=== PATIENT | female | born 1995 | race Caucasian/White ===

== ENCOUNTER 2016-04-14 12:54 | Emergency (ER) | payer MEDICAID ==
[~2016-04-14 12:54] MED LIST: PREN1TAB18
--- NOTE | 2016-04-14 13:53 | PD ---
HPI Travel History International Travel<30 Days: No Contact w/Intl Traveler<30Days: No Known Affected Area: No History of Present Illness HPI This patient is a 21-year-old 1 para 0 EDC is May 15, 2016 present at 35 weeks and 4 days she presents with chief complaint of headache she states she awoke and had a severe headache she took 2 Tylenol and it has improved some no blurred vision no nausea no vomiting no ruptured membranes no vaginal bleeding the baby is active care with Dr. calvillo of the denies any complications History Past Medical History Narrative Medical No known drug allergies no major medical problems Obstetric History Obstetric History First Past Surgical History Surgical History: No Previous Surgery Family History Family History: Negative Social History Alcohol Use: No Tobacco Use: No Substance Abuse: No Allergies-Medications (Allergen,Severity, Reaction): Coded Allergies: No Known Allergies (Verified , 03/11/12) Home Meds Reported Medications Vitamins W/ Fe Aspart (Prenate Star 20-1 mg)1 Tab Tab 04/05/16 Review of Systems HENT: Headaches Physical Exam Narrative GENERAL: Well-nourished, well-developed patient. Alert oriented 3 and cooperative in no acute distress CARDIOVASCULAR: Regular rate and rhythm without murmurs, gallops, or rubs. RESPIRATORY: Breath sounds equal bilaterally. No accessory muscle use. ABDOMEN/GI gravid consistent with 35 weeks soft nontender no palpable contractions no epigastric or right upper quadrant tenderness Gravid to [-] weeks size 35 Fundal Height: [-] GENITOURINARY: Pelvic exam is deferred as patient has no obstetric complaints External Genitalia: intact and normal in appearance Membranes: [intact FHT's: Category: [-] 1 Baseline: [-] 140 Reactive: [-] + Variability: [-] Moderate ilys-[id number] variability Decels: [-] 0 EXTREMITIES: No cyanosis or edema. 2+ reflexes nonbrisk NEUROLOGICAL: Awake and alert. Motor and sensory grossly within normal limits. Five out of 5 muscle strength in all muscle groups. Normal speech. Data Data Vital Signs Reviewed: Yes (blood pressures 130/78 pulse is 93 she is afebrile) [facility] Medical Record Reviewed: No Interpretation(s) 21-year-old at 35 weeks and 4 days Not in labor Headache Rule out signs of preeclampsia Plan External monitor By mouth fluid hydration CBC CMP uric acid urinalysis Blood pressure every 15 minutes on left tilt Reevaluation Narrative Course / MDM Trace protein in the urine Liver function studies are normal Platelets are normal Patient feeling better after the Tylenol #3 Plan Discharge patient home Rest over the weekend Follow-up with Dr. Nayak on Sunday Diagnosis Diagnosis: Primary Impression: Migraine aura without headache Additional Impression: 35 weeks gestation of Disposition: DISCHARGE HOME Condition: Stable Chayito Arreguin MD Apr 14, 2016 13:53
[2016-04-14] MEDS ORDERED: ACETAMINOPHEN/CODEINE 300 MG/30 MG TAB PO ONE (14:15)
[2016-04-14 14:19] LABS: HEMATOCRIT 35.1 % (35.0-46.0); MEAN CORPUSCULAR HEMOGLOBIN 27.7 PG (27.0-34.0); MEAN CORPUSCULAR HGB CONC 32.6 % (32.0-36.0); PLATELET COUNT 264 TH/MM3 (150-450); RED BLOOD COUNT 4.13 MIL/MM3 (4.00-5.30); RED CELL DISTRIBUTION WIDTH 13.3 % (11.6-17.2); REVIEW FLAG FINAL; WHITE BLOOD COUNT 13.4 TH/MM3 (4.0-11.0)
[2016-04-14 14:30] LABS: BACTERIA, URINE OCC /hpf; BLOOD, URINE NEG (NEG); COMMENT (UR) CULT NOT INDICATED; CULTURE IF INDICATED CULT NOT INDICATED; GLUCOSE,URINE NEG (NEG); KETONE, URINE NEG (NEG); MUCUS URINE FEW /lpf (OCC); NITRITE,URINE NEG (NEG); PH, URINE 7.5 (5.0-8.5); SQUAMOUS EPITHELIAL CELL URINE 11 /hpf (0-5); URINE COLOR YELLOW (YELLW/STRAW)
[2016-04-14 14:47] LABS: ALKALINE PHOSPHATASE 142 U/L (45-117); ALT (GPT) 18 U/L (9-42); ANION GAP 7 MEQ/L (5-15); AST (GOT) 19 U/L (16-38); BICARBONATE 26.5 MEQ/L (21.0-32.0); BLOOD UREA NITROGEN 8 MG/DL (7-18); CHLORIDE 107 MEQ/L (98-107); GLOMERULAR FILTRATION RATE 125 ML/MIN (>89); POTASSIUM 4.1 MEQ/L (3.5-5.1); SODIUM (NA) 140 MEQ/L (136-145); TOTAL BILIRUBIN ADULT 0.3 MG/DL (0.2-1.0); URIC ACID 4.9 MG/DL (2.6-6.0)
== END 2016-04-14 15:16 | disposition home or self-care (01) ==
LOC: HOBED 12:54
DX: O26.93 Pregnancy related conditions, unspecified, third trimester (principal); G43.109 Migraine with aura, not intractable, without status migrainosus; Z3A.35 35 weeks gestation of pregnancy
CPT/HCPCS: 36415; 59025; 80053; 81001; 82948; 84550; 85027

== ENCOUNTER 2016-04-27 16:32 | Emergency (ER) | payer MEDICAID ==
[2016-04-27 17:48] LABS: BACTERIA, URINE RARE /hpf; BLOOD, URINE NEG (NEG); COMMENT (UR) CULT NOT INDICATED; CULTURE IF INDICATED CULT NOT INDICATED; GLUCOSE,URINE NEG (NEG); KETONE, URINE NEG (NEG); NITRITE,URINE NEG (NEG); PH, URINE 6.5 (5.0-8.5); SQUAMOUS EPITHELIAL CELL URINE 7 /hpf (0-5); URINE COLOR YELLOW (YELLW/STRAW)
--- NOTE | 2016-04-27 17:51 | PD ---
HPI Chief Complaint BP check Travel History International Travel<30 Days: No Contact w/Intl Traveler<30Days: No History of Present Illness HPI 21 yo @ 37w3d with ASH 05-15-2016. care with Dr. Nayak. Patient was seen in the clinic today with c/o a headache this morning and swelling in her feet. Her BPs in the office were 130s/80s. She denies any current UGALDE, visual symptoms, abdominal pain. Only c/o fatigue. No VB, LOF. +FM History Past Medical History Medical History: Denies Significant Hx Obstetric History Obstetric History G1 Past Surgical History Surgical History: No Previous Surgery Family History Family History: Negative Social History Alcohol Use: No Tobacco Use: No Substance Abuse: No Allergies-Medications (Allergen,Severity, Reaction): Coded Allergies: No Known Allergies (Verified , 03/11/12) Home Meds Reported Medications Vitamins W/ Fe Aspart (Prenate Star 20-1 mg)1 Tab Tab 04/05/16 Review of Systems General / Constitutional: No: Fever, Chills HENT: No: Headaches, Lightheadedness Cardiovascular: No: Chest Pain or Discomfort Respiratory: No: Cough, Short of Breath Gastrointestinal: No: Nausea, Vomiting, Abdominal Pain, Loss of Appetite Genitourinary: No: Urgency, Dysuria, Vaginal Bleeding Musculoskeletal: No: Limited ROM, Weakness Skin: No Rash, No Itching Neurologic: No: Syncope, Focal Abnormalities Physical Exam Narrative GENERAL: Well-nourished, well-developed patient. SKIN: Warm and dry. HEAD: Normocephalic and atraumatic. EYES: No scleral icterus. No injection or drainage. ENT: No nasal drainage noted. Mucous membranes pink. Airway patent. CARDIOVASCULAR: Regular rate RESPIRATORY: No accessory muscle use. ABDOMEN/GI: Abdomen soft, non-tender, no rebound, no guarding Gravid, NT FHT's: Category: I Baseline: 130 Reactive: +accelerations Variability: mod Decels: [-] EXTREMITIES: No cyanosis or edema. DTR +2, no clonus BACK: Nontender without obvious deformity. Normal ROM NEUROLOGICAL: Awake and alert. Motor and sensory grossly within normal limits. Normal speech. Data Data Vital Signs Reviewed: Yes Orders Vital Signs (Adult) .ON ADMISSION (04/27/16 16:40) ^ Labor Status (04/27/16 16:40) Urinalysis - C+S If Indicated (04/27/16 16:40) ^ Non Stress Test (04/27/16 16:40) Comprehensive Metabolic Panel (04/27/16 16:40) Uric Acid (04/27/16 16:40) Labs Laboratory Tests Test 04/27/16 16:57 Urine Color YELLOW (YELLW/STRAW) Urine Turbidity HAZY (CLEAR) Urine pH 6.5 (5.0-8.5) Urine Specific Pyrites 1.019 (1.002-1.035) Urine Protein TRACE mg/dL (NEG-TRACE) Urine Glucose (UA) NEG mg/dL (NEG) Urine Ketones NEG mg/dL (NEG) Urine Occult Blood NEG (NEG) Urine Nitrite NEG (NEG) Urine Bilirubin NEG (NEG) Urine Urobilinogen LESS THAN 2.0 MG/DL (LESS THAN 2.0) Urine Leukocyte Esterase LARGE (NEG) Urine RBC LESS THAN 1 /hpf (0-3) Urine WBC 4 /hpf (0-5) Urine Squamous Epithelial 7 /hpf (0-5) Cells Urine Bacteria RARE /hpf (NONE) Microscopic Urinalysis Comment CULT NOT INDICATED Sodium Level 139 MEQ/L (136-145) Potassium Level 4.4 MEQ/L (3.5-5.1) Chloride Level 108 MEQ/L (98-107) Carbon Dioxide Level 23.7 MEQ/L (21.0-32.0) Anion Gap 7 MEQ/L (5-15) Blood Urea Nitrogen 11 MG/DL (7-18) Creatinine 0.80 MG/DL (0.50-1.00) Estimat Glomerular Filtration 91 ML/MIN (>89) Rate Random Glucose 102 MG/DL (74-106) Uric Acid 5.8 MG/DL (2.6-6.0) Calcium Level 9.0 MG/DL (8.5-10.1) Total Bilirubin 0.1 MG/DL (0.2-1.0) Aspartate Amino Transf 30 U/L (16-38) (AST/SGOT) Alanine Aminotransferase 22 U/L (9-42) (ALT/SGPT) Alkaline Phosphatase 159 U/L (45-117) Total Protein 6.5 GM/DL (6.4-8.2) Albumin 2.9 GM/DL (3.4-5.0) MDM Interpretation(s) Normal BPs Normal exam CAT I FHT PIH labs wnl Plan D/c home Reviewed labs and urine Reviewed PI symptoms Has f/u with Dr. Nayak on Sunday. All questions answered Condition: Teresa Suazo MD Apr 27, 2016 17:51
[2016-04-27 17:59] LABS: ALT (GPT) 22 U/L (9-42); ANION GAP 7 MEQ/L (5-15); AST (GOT) 30 U/L (16-38); BICARBONATE 23.7 MEQ/L (21.0-32.0); BLOOD UREA NITROGEN 11 MG/DL (7-18); CHLORIDE 108 MEQ/L (98-107); GLOMERULAR FILTRATION RATE 91 ML/MIN (>89); POTASSIUM 4.4 MEQ/L (3.5-5.1); SODIUM (NA) 139 MEQ/L (136-145); URIC ACID 5.8 MG/DL (2.6-6.0)
[2016-04-27 18:00] LABS: ALKALINE PHOSPHATASE 159 U/L (45-117); TOTAL BILIRUBIN ADULT 0.1 MG/DL (0.2-1.0)
== END 2016-04-27 19:19 | disposition home or self-care (01) ==
LOC: HOBED 16:32
DX: O26.93 Pregnancy related conditions, unspecified, third trimester (principal); Z3A.37 37 weeks gestation of pregnancy
CPT/HCPCS: 59025; 80053; 81001; 84550

== ENCOUNTER 2016-05-09 17:46 | Inpatient (IN) | payer MEDICAID ==
[~2016-05-09] VITALS: Ht 5 cm; Wt 92.1 kg
[2016-05-09] MEDS ORDERED: BENA25TA3 PO (20:38)
[2016-05-09] MEDS ORDERED: FAMO1TAB37 PO (20:42)
[2016-05-09] MEDS ORDERED: LIDOCAINE HCL 1% 50 ML VIAL I-DERMAL PRN (21:30)
[2016-05-09] MEDS ORDERED: NIFEdipine 20 MG CAP PO PRN (21:30)
[2016-05-09] MEDS ORDERED: ONDANSETRON HCL 4 MG/2 ML VIAL IV PRN (21:30)
[2016-05-09] MEDS ORDERED: MAGNESIUM SULFATE 4GRAM PRMIX-LOAD DOSE IV ONE (21:30)
[2016-05-09] MEDS ORDERED: LACTATED RINGER'S 1000 ML INJ 1,000 ML IV SCH ×2 (21:30)
[2016-05-09] MEDS ORDERED: CITRIC ACID-SODIUM CITRATE LIQ 30 ML UDC PO SCH (21:30)
[2016-05-09] MEDS ORDERED: ZOLPIDEM TARTRATE 5 MG TAB PO PRN (21:30)
[2016-05-09] MEDS ORDERED: LACTATED RINGER'S 1000 ML IV SCH (21:30)
[2016-05-09] MEDS ORDERED: CALCIUM GLUCONATE 10% 1 GM/10 ML VIAL IV PUSH PRN (21:30)
[2016-05-09] MEDS ORDERED: NIFEdipine 10 MG CAP PO PRN (21:30)
[2016-05-09] MEDS ORDERED: MINERAL OIL 10 ML VIAL TOP PRN (21:30)
[2016-05-09] MEDS ORDERED: MISOPROSTOL 25 MCG SUPP VAGINAL ONE (21:30)
[2016-05-09] MEDS ORDERED: NS 500 ML BOLUS IV PRN (21:30)
[2016-05-09] MEDS ORDERED: NS 1000 ML IV PRN (21:30)
[2016-05-09] MEDS ORDERED: OXYTOCIN 30 UNITS 500ML PREMIX IV ONE (21:30)
[2016-05-09] MEDS ORDERED: NS 1000 ML XX PRN (21:30)
[2016-05-09] MEDS ORDERED: MISOPROSTOL 25 MCG SUPP - repeat dose VAGINAL PRN (21:30)
[2016-05-09] MEDS ORDERED: LACTATED RINGER'S 1000 ML BOLUS IV PRN (21:30)
[2016-05-09] MEDS ORDERED: MAGNESIUM SULFATE 40 GM PREMIX 1,000 ML IV SCH (21:30)
[2016-05-09] MEDS ORDERED: LIDOCAINE HCL 1% 50 ML VIAL INFIL PRN (21:30)
[2016-05-09] MEDS ORDERED: OXYTOCIN 30 UNITS/NS 500ML PREMIX IV SCH (21:45)
[2016-05-09 21:46] LABS: AUTOMATED NEUTROPHIL # 4.7 TH/MM3 (1.8-7.7); BASOPHIL % 0.4 % (0.0-2.0); EOSINOPHIL # 0.1 TH/MM3 (0-0.4); EOSINOPHIL % 0.9 % (0.0-4.0); LYMPH % 47.3 % (9.0-44.0); LYMPHOCYTE # 5.1 TH/MM3 (1.0-4.8); MEAN CELL VOLUME 84.5 FL (80.0-100.0); MEAN CORPUSCULAR HEMOGLOBIN 27.8 PG (27.0-34.0); MEAN CORPUSCULAR HGB CONC 32.9 % (32.0-36.0); MONO % 7.5 % (0.0-8.0); NEUT % 43.9 % (16.0-70.0); PLATELET COUNT 230 TH/MM3 (150-450); RED BLOOD COUNT 4.03 MIL/MM3 (4.00-5.30); WHITE BLOOD COUNT 10.7 TH/MM3 (4.0-11.0)
[2016-05-09 21:47] LABS: HEMO FLAGS AUTO DIFF
[2016-05-09 22:08] VITALS: BP 142/65; PULSE 83
[2016-05-09 22:11] LABS: BLOOD, URINE NEG (NEG); CALCIUM OXALATE CRYSTALS,URINE RARE /hpf; COMMENT (UR) CULT NOT INDICATED; CULTURE IF INDICATED CULT NOT INDICATED; GLUCOSE,URINE NEG (NEG); KETONE, URINE NEG (NEG); MUCUS URINE FEW /lpf (OCC); NITRITE,URINE NEG (NEG); SQUAMOUS EPITHELIAL CELL URINE 3 /hpf (0-5); URINE COLOR YELLOW (YELLW/STRAW)
--- NOTE | 2016-05-09 22:11 | MH ---
cc: BRITTANY NAYAK DATE OF ADMISSION 05/09/2016 REASON FOR ADMISSION Induction, reason for induction preeclampsia. HISTORY OF THE PRESENT ILLNESS Ms. Carter is a 21-year-old white female para 0-0-0-0 who by ultrasound early in the and dates is 39 weeks and 2 days. She presents today to the office and was noted to have an elevated blood pressure and proteinuria which is new. She also gained 5 pounds and was having headaches the last couple of days. We are sending her over for induction of labor and to check her pre-eclamptic labs. She understands the risks and benefits and agreed to proceed. OB HISTORY Her past OB history she is para 2, 0-0-0-0. 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 PAST SURGICAL HISTORY Her past surgical history is negative. SOCIAL HISTORY She is . She is a former smoker. She does not drink alcohol. FAMILY HISTORY Noncontributory. ALLERGIES NO KNOWN DRUG ALLERGIES. CURRENT MEDICATIONS vitamins one p.o. daily. REVIEW OF SYSTEMS She has had headaches increasing over the past several days and a large weight gain. She denies any shortness of breath, chest pressure or chest pain. No right upper quadrant pain. The baby is moving well. No rupture of membranes or bleeding. She is having occasional contractions. PHYSICAL EXAMINATION GENERAL: The patient is a well-developed, well-nourished female in no acute distress, resting comfortably. VITAL SIGNS: Her weight is 213. Her blood pressure is 132/78. HEENT: Normocephalic, atraumatic. NECK: Supple. Trachea is midline. No thyromegaly or adenopathy. CHEST: Clear to auscultation. CARDIOVASCULAR: Heart has regular rate and rhythm without murmur or gallop. ABDOMEN: The abdomen is gravid, nontender. Fundal height is 40. Estimated weight is 8 pounds 2 ounces. PELVIC: Her pelvis seems adequate. Her cervix is 1 cm, 20% effaced, -3. Soft. Midplane. The baby is vertex. EXTREMITIES: No clubbing, cyanosis or edema. Her DTRs are brisk at +3. ASSESSMENT/PLAN 1. Intrauterine at 39+ weeks. 2. Preeclampsia. We will go ahead and induce her at this time. I think she has got a somewhat favorable cervix. We will try giving her some Cytotec overnight and then start Pitocin tomorrow. We also will go ahead and draw pre-eclamptic labs and monitor blood pressure. 3. R. Brittany Nayak MD RJV/KK /9:49 PM /9:57 PM
[2016-05-09 22:13] VITALS: RESP 18
[2016-05-09 22:15] VITALS: TEMP 98
[2016-05-09 22:15] LABS: BANDS 1 % (0-6); CORRECTED NUCLEATED RBC 1 /100 WBC (0-0); NEUTROPHIL # MANUAL DIFF 7.1 TH/MM3 (1.8-7.7); POLYS (SEG NEUTROPHILS) 65 % (16-70); WBC DIFF SAMPLE 100
[2016-05-09 22:16] LABS: ALKALINE PHOSPHATASE 180 U/L (45-117); ALT (GPT) 19 U/L (9-42); AST (GOT) 26 U/L (16-38); INDIRECT BILIRUBIN 0.1 MG/DL (0.0-0.8); PLATELET ESTIMATE SMEAR NORMAL (NORMAL); PLATELET MORPHOLOGY NORMAL (NORMAL); SCAN/DIFF AUTO DIFF CONFIRMED; TOTAL BILIRUBIN ADULT 0.2 MG/DL (0.2-1.0); URIC ACID 6.2 MG/DL (2.6-6.0)
[2016-05-09] MEDS ORDERED: diphenhydrAMINE HCL 50 MG CAP PO ONE (23:00)
[2016-05-10] VITALS (32 sets, daily range): BP systolic 104–153; BP diastolic 41–93; PULSE 66–168; RESP 16–22; TEMP 97.7–98.8
[2016-05-10] MEDS ORDERED: fentaNYL 2MCG-BUPIV 0.125% INJ 100 ML ONE (10:15)
[2016-05-10] MEDS ORDERED: DO NOT ADMINISTER ANTICOAGULANTS XX PRN (12:00)
[2016-05-10] MEDS ORDERED: NO SYSTEM NARCOTICS XX PRN (12:00)
[2016-05-10] MEDS ORDERED: fentaNYL 2MCG-BUPIV 0.125% INJ 100 ML EPIDURAL SCH (12:00)
[2016-05-10] MEDS ORDERED: ePHEDrine/NS 50 MG/5 ML SYR IV PRN (12:00)
[2016-05-10] MEDS ORDERED: ALUMINUM/MAGNESIUM/SIMETH 30 ML CUP PO PRN (14:00)
[2016-05-10] MEDS ORDERED: ONDANSETRON ODT 4 MG TAB PO PRN (14:00)
[2016-05-10] MEDS ORDERED: OXYTOCIN 30 UNITS-500ML PREMIX 500 ML IV ONE (14:00)
[2016-05-10] MEDS ORDERED: WITCH HAZEL 50%/GLYCERIN 12.5% 40 PAD JAR TOPICAL PRN (14:00)
[2016-05-10] MEDS ORDERED: ZOLPIDEM TARTRATE 5 MG TAB PO PRN (14:00)
[2016-05-10] MEDS ORDERED: ACETAMINOPHEN 325 MG TAB PO PRN (14:00)
[2016-05-10] MEDS ORDERED: SODIUM CHLORIDE 0.9% FLUSH 5 ML FLUSH IV PRN (14:00)
[2016-05-10] MEDS ORDERED: BENZOCAINE 20% TOPICAL SPRAY 60 ML CAN TOPICAL PRN (14:00)
--- NOTE | 2016-05-10 14:04 | PD.OB.DELI ---
Delivery Date: May 10, 2016 Anesthesia: Epidural Episiotomy: Midline Vaginal Delivery: Normal Presentation: Occiput anterior Nuchal Cord: None Infant: Female One Minute : 8 Five Minute : 9 Weight: 3595G Care: Suctioned, Spontaneous crying, Responded to stimulation Placenta: Spontaneous delivery, Intact, 3 vessel cord Laceration: Episiotomy, 2 deg Repair: Vicryl running Additional Information NICE DELIVERY SMALL RIGHT LABIAL LACERATION 5-0 VICRYL BABY DID WELL. Aida Nayak MD May 10, 2016 14:04
[2016-05-10] MEDS: oxyCODONE/ACETAMINOPHEN 5 MG/325 MG TAB PO PRN ×2 (14:48→20:47)
[2016-05-10] MEDS: IBUPROFEN 600 MG TAB PO PRN ×2 (14:48→20:47)
[2016-05-10] MEDS ORDERED: DIPHTH/TETANUS/ACEL PERTUSSIS (BOOSTER) 0.5 ML VIAL/PFS IM ONE (16:00)
[2016-05-10] MEDS ORDERED: MEASLES, MUMPS, RUBELLA VACCINE 0.5 ML VIAL SQ ONE (16:00)
[2016-05-10] MEDS ORDERED: SODIUM CHLORIDE 0.9% FLUSH 5 ML FLUSH IV SCH (21:00)
[2016-05-11] MEDS: DOCUSATE SODIUM 50 MG/SENNA 8.6 MG TAB PO PRN ×2 (00:37→23:36)
[2016-05-11] MEDS: oxyCODONE/ACETAMINOPHEN 5 MG/325 MG TAB PO PRN ×5 (00:38→20:54)
[2016-05-11] MEDS: IBUPROFEN 600 MG TAB PO PRN ×3 (04:25→20:54)
[2016-05-11 07:00] VITALS: BP 153/91; PULSE 79; RESP 18; TEMP 98.8
[2016-05-11] MEDS ORDERED: OXYC1TAB63 PO (08:40)
[2016-05-11] MEDS ORDERED: IBUP-232 PO (08:40)
[2016-05-11 09:00] VITALS: BP 153/91
[2016-05-11 13:00] VITALS: BP 149/98
--- NOTE | 2016-05-11 15:29 | HHI.OB ---
Subjective Post Day: 1 Objective Vitals/I&O Vital Signs Date Time Temp Pulse Resp B/P Pulse Ox O2 Delivery O2 Flow Rate FiO2 05/11/16 13:00 149/98 05/11/16 09:00 153/91 05/11/16 05:26 16 05/11/16 01:38 16 05/10/16 21:47 18 05/10/16 20:51 98.2 78 16 142/86 05/10/16 15:30 98 146/65 05/10/16 15:30 98.8 18 Objective Remarks GENERAL: Well-nourished, well-developed patient. CARDIOVASCULAR: Regular rate and rhythm without murmurs, gallops, or rubs. RESPIRATORY: Breath sounds equal bilaterally. No accessory muscle use. ABDOMEN/GI: Abdomen soft, non-tender. Fundus: Firm, non-tender at umbilicus. GENITOURINARY: Light to moderate bleeding. EXTREMITIES: No cyanosis, non-tender, without signs of DVT, +1 lower extremity edema Medications and IVs Current Medications Medications (Trade) Dose Ordered Sig/Sandrita Route Start Time Stop Time Status Last Admin (NS Flush) 2 ml BID IV 05/10/16 21:00 (NS Flush) 2 ml UNSCH PRN IV 05/10/16 14:00 (Tylenol) 650 mg Q4H PRN PO 05/10/16 14:00 05/11/16 10:08 (Motrin) 600 mg Q6H PRN PO 05/10/16 14:00 05/11/16 11:14 (Percocet 5-325 Mg) 1 tab Q4H PRN PO 05/10/16 14:00 05/11/16 11:14 (Percocet 5-325 Mg) 2 tab Q4H PRN PO 05/10/16 14:00 05/11/16 04:26 (Americaine 20% Top Spr) 1 spray Q4H PRN TOPICAL 05/10/16 14:00 05/10/16 14:47 (Tucks Pads) 1 applic QID PRN TOPICAL 05/10/16 14:00 05/10/16 14:47 (Mable-Colace) 2 tab Q12H PRN PO 05/10/16 14:00 05/11/16 00:37 (Ambien) 5 mg HS PRN PO 05/10/16 14:00 (Mag-Al Plus Susp Liq) 15 ml Q8H PRN PO 05/10/16 14:00 (Zofran Odt) 4 mg Q6H PRN PO 05/10/16 14:00 05/11/16 11:17 Assessment/Plan Problem List: (1) Normal vaginal delivery Plan: routine (2) Preeclampsia Plan: monitor Assessment and Plan pt doing well bp's 140-150/80-90's, continue to monitor bonding with infant routine care Discharge Planning consider dc home tomorrow Loreto Barrera May 11, 2016 15:28
[2016-05-11 16:29] VITALS: BP 152/83
[2016-05-11] MEDS ORDERED: diphenhydrAMINE HCL 25 MG CAP PO PRN (17:45)
[2016-05-11 20:00] VITALS: BP 142/93; PULSE 75; RESP 18; TEMP 98.8
[2016-05-12] MEDS: IBUPROFEN 600 MG TAB PO PRN ×3 (03:35→15:50)
[2016-05-12] MEDS: oxyCODONE/ACETAMINOPHEN 5 MG/325 MG TAB PO PRN ×4 (03:35→15:50)
[2016-05-12 08:00] VITALS: BP 137/74; PULSE 78; RESP 18; TEMP 98
--- NOTE | 2016-05-12 12:00 | HHI.OB ---
Subjective Post Day: 2 Objective Vitals/I&O Vital Signs Date Time Temp Pulse Resp B/P Pulse Ox O2 Delivery O2 Flow Rate FiO2 05/12/16 08:00 98.0 78 18 137/74 05/11/16 20:00 98.8 75 18 142/93 05/11/16 16:29 152/83 05/11/16 13:00 149/98 Objective Remarks GENERAL: Well-nourished, well-developed patient. CARDIOVASCULAR: Regular rate and rhythm without murmurs, gallops, or rubs. RESPIRATORY: Breath sounds equal bilaterally. No accessory muscle use. ABDOMEN/GI: Abdomen soft, non-tender. Fundus: Firm, non-tender at umbilicus. GENITOURINARY: Light to moderate bleeding. EXTREMITIES: No cyanosis, non-tender, without signs of DVT, +1 lower extremity edema Medications and IVs Current Medications Medications (Trade) Dose Ordered Sig/Sandrita Route Start Time Stop Time Status Last Admin (NS Flush) 2 ml BID IV 05/10/16 21:00 (NS Flush) 2 ml UNSCH PRN IV 05/10/16 14:00 (Tylenol) 650 mg Q4H PRN PO 05/10/16 14:00 05/11/16 10:08 (Motrin) 600 mg Q6H PRN PO 05/10/16 14:00 05/12/16 10:04 (Percocet 5-325 Mg) 1 tab Q4H PRN PO 05/10/16 14:00 05/12/16 10:03 (Percocet 5-325 Mg) 2 tab Q4H PRN PO 05/10/16 14:00 05/12/16 03:35 (Americaine 20% Top Spr) 1 spray Q4H PRN TOPICAL 05/10/16 14:00 05/10/16 14:47 (Tucks Pads) 1 applic QID PRN TOPICAL 05/10/16 14:00 05/10/16 14:47 (Mable-Colace) 2 tab Q12H PRN PO 05/10/16 14:00 05/11/16 23:36 (Ambien) 5 mg HS PRN PO 05/10/16 14:00 (Mag-Al Plus Susp Liq) 15 ml Q8H PRN PO 05/10/16 14:00 (Zofran Odt) 4 mg Q6H PRN PO 05/10/16 14:00 05/11/16 11:17 (Benadryl) 25 mg Q4H PRN PO 05/11/16 17:45 05/11/16 17:57 Assessment/Plan Problem List: (1) Normal vaginal delivery Plan: routine (2) Preeclampsia Plan: monitor Assessment and Plan pt doing well bp's improving, discussed s/s of pre-eclampsia with pt and family bonding with routine care Discharge Planning dc home today Loreto Barrera May 12, 2016 12:00
--- NOTE | 2016-05-12 12:07 | HHI.DCPOC ---
Discharge Care Plan Diagnosis: (1) Preeclampsia (2) Normal vaginal delivery Your Health Problems Are: Vaginal delivery Report Symptoms to Your Doctor -Temperate above 100.5 degrees -Redness, of incision or excessive or foul smelling drainage -Unusual pain or calf pain -Increased vaginal bleeding -Painful or difficulty urinating -Feelings of extreme sadness or anxiety after 2 weeks Goals to Promote Your Health * To prevent worsening of your condition and complications * To maintain your health at the optimal level Directions to Meet Your Goals Take your medications as prescribed Follow your dietary instruction Follow activity as directed Ensure plenty of rest for recovery Drink fluids for hydration Keep your appointments as scheduled Take your immunizations and boosters as scheduled If your symptoms worsen call your PCP, if no PCP go to Urgent Care Center or Emergency Room Smoking is Dangerous to Your Health. Avoid second hand smoke Call the 24-hour crisis hotline for domestic abuse at Loreto Barrera May 12, 2016 12:07
--- NOTE | 2016-05-12 12:09 | HHI.DS ---
Admission Date May 09, 2016 at 17:46 Discharge Date: May 12, 2016 Admitting Diagnosis term pre-eclampsia induction Diagnosis: (1) Normal vaginal delivery Diagnosis: Principal (2) Preeclampsia Diagnosis: Principal Delivery Date: May 10, 2016 : Female Brief History term proteinuria elevation bp induction for pre-eclampsia Hospital Course induction routine Pt Condition on Discharge: Good Discharge Disposition: Discharge Home Discharge Instructions Diet Instructions: As Tolerated, No Restrictions Additional Diet Instructions: Drink at least 8 - 16 oz bottles of water a day Activities You Can Perform: Shower Only-No Bath, Sitz Bath Activities to Avoid: Lifting/Bending, Sexual Activity Additional Activity Instruc.: No driving until off pain medications Do not lift anything heavier than your baby in an carrier Follow up 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
[2016-05-12] MEDS: DOCUSATE SODIUM 50 MG/SENNA 8.6 MG TAB PO PRN (12:24)
== END 2016-05-12 17:38 | disposition home or self-care (01) | DRG 775 ==
LOC: H2EA 17:46 → H1EA 05-10 14:59
PROVIDERS: ADMIT Obstetrics & Gynecology; ATTEND Obstetrics & Gynecology
PROC: 0W8NXZZ Division of Female Perineum, External Approach (ICD-10-PCS; principal; 2016-05-10)
PROC: 10E0XZZ Delivery of Products of Conception, External Approach (ICD-10-PCS; 2016-05-10)
PROC: 10907ZC Drainage of Amniotic Fluid, Therapeutic from Products of Conception, Via Natural or Artificial Opening (ICD-10-PCS; 2016-05-10)
PROC: 0HQ9XZZ Repair Perineum Skin, External Approach (ICD-10-PCS; 2016-05-10)
PROC: 3E0R3CZ (ICD-10-PCS; 2016-05-10)
PROC: 00HU33Z Insertion of Infusion Device into Spinal Canal, Percutaneous Approach (ICD-10-PCS; 2016-05-10)
DX: O14.94 Unspecified pre-eclampsia, complicating childbirth (principal); O70.0 First degree perineal laceration during delivery; Z87.891 Personal history of nicotine dependence; Z37.0 Single live birth; Z3A.39 39 weeks gestation of pregnancy
CPT/HCPCS: 59025; 80076; 81001; 84550; 85025; 86900; 86901; J2405; J3010; J7120; Q0163